=== PATIENT | female | born 1975 | race Caucasian/White ===

== ENCOUNTER → 2022-01-19 | Outpatient (CLI) | payer OTHER | LOC: MC.RAD 09:04 | DX: Z12.31 Encounter for screening mammogram for malignant neoplasm of breast (principal) ==

== ENCOUNTER → 2023-02-12 | Outpatient (CLI) | payer OTHER | LOC: MC.RAD 13:00 | DX: Z12.31 Encounter for screening mammogram for malignant neoplasm of breast (principal) ==